=== PATIENT | female | born 1975 | race Caucasian/White ===

== ENCOUNTER 2017-12-13 09:51 | Emergency (ER) | payer BC ==
--- NOTE | 2017-12-13 10:35 | ED ---
Headache - HPI Summary HPI Summary: 42-year-old female with history of renal cell carcinoma, hypertension, polycystic ovarian syndrome, diverticulitis, migraine headaches, presents with gradual onset headaches duration approximate 5 days associated with mild nausea , dizziness, located diffusely and behind her eyes, slightly different from her usual migraines that are mainly generalized and posterior. Denies any fever, recent trauma, or neck pain. No episodes of vomiting. Denies any recent alcohol use. Mild photophobia, no phonophobia. Headache initially started in a similar manner compared to her prior headaches but more severe today. No radiation of the pain. Patient is taking usual medications at home including Tylenol and Maxalt with minimal relief over the last 5 days, worse today. No worsening factors. - History Of Current Complaint Chief Complaint: EDHeadache Stated Complaint: HEADACHE 4-5 DAYS - Allergies/Home Medications Allergies/Adverse Reactions: Allergies Allergy/AdvReac Type Severity Reaction Status Date / Time cefaclor Allergy Mild Hives Verified 12/13/17 11:32 drospirenone [From [facility] (28)] AdvReac Mild Headache Verified 12/13/17 11:32 ethinyl estradiol AdvReac Mild Headache Verified 12/13/17 11:32 [From [facility]LIN (28)] nitrofurantoin AdvReac Mild Headache Verified 12/13/17 11:32 Home Medications: Home Medications Calcium Carbonate [Calcium] 500 mg PO DAILY 12/13/17 [History Confirmed 12/13/17 ] Lisinopril/HCTZ 20/12.5(NF) [Zestoretic 20/12.5(NF)] 1 tab PO DAILY 12/13/17 [ History Confirmed 12/13/17] Metformin ER (NF) [Glucophage ER 750 MG TAB (NF)] 750 mg PO QPM 12/13/17 [ History Confirmed 12/13/17] Multivitamins/Minerals TAB* [Theragran/minerals TAB*] 1 tab PO DAILY 12/13/17 [ History Confirmed 12/13/17] [place]-3 Fatty Acids (Nf) [Fish Oil (NF)] 1,000 mg PO DAILY 12/13/17 [History Confirmed 12/13/17] Spironolactone TAB* [Aldactone TAB*] 50 mg PO DAILY 12/13/17 [History Confirmed 12/13/17] Venlafaxine EXT RELEASE CAP* [Effexor Xr CAP*] 37.5 mg PO DAILY 12/13/17 [ History Confirmed 12/13/17] PMH/Surg Hx/FS Hx/Imm Hx Previously Healthy: Yes Endocrine/Hematology History: Reports: Hx Anemia Denies: Hx Diabetes Cardiovascular History: Reports: Hx Hypertension - RELATED TO POLYCYSTIC OVARIES Denies: Hx Congestive Heart Failure, Hx Pacemaker/ICD Respiratory History: Reports: Hx Asthma - RELATED TO ILLNESS, Hx Seasonal Allergies GI History: Reports: Hx Diverticulosis, Other GI Disorders History: Reports: Hx Renal Disease - r kidney cancer, Other Problems/ Disorders - RIGHT PARTIAL NEPHRECTOMY-2012 Denies: Hx Dialysis Sensory History: Reports: Hx Contacts or Glasses Denies: Hx Hearing Aid Opthamlomology History: Reports: Hx Contacts or Glasses Neurological History: Reports: Hx Headaches, Hx Migraine - STRESS RELATED- TREATS WITH MAXALT Psychiatric History: Reports: Hx Anxiety - NO MEDICATION FOR, Hx Depression - NO MEDICATION FOR, Hx Panic Disorder - Cancer History Cancer Type, Location and Year: RENAL CA 04/2012. PARTIAL RIGHT NEPHRECTOMY Hx Chemotherapy: No Hx Radiation Therapy: No - Surgical History Surgery Procedure, Year, and Place: TONSILECTOMY 1993-[facility]. [facility] D&C 2011-[facility]. PARTIAL RT NEPHRECTOMY 04/2012 -[facility] Anesthesia Reactions: No Infectious Disease History: No Infectious Disease History: Reports: Hx Hepatitis Denies: Traveled Outside the in Last 30 Days - Family History Known Family History: Positive: None - reviewed & noncontributory, Cardiac Disease, Other - dysplipdemia, PCOD - Social History Alcohol Use: Occasionally Hx Substance Use: No Substance Use Type: Reports: None Hx Tobacco Use: No Smoking Status (MU): Never Smoked Tobacco Have You Smoked in the Last Year: No Review of Systems Constitutional: Negative Eyes: Negative Positive: Photophobia ENT: Negative Cardiovascular: Negative Respiratory: Negative Gastrointestinal: Negative Genitourinary: Negative Musculoskeletal: Negative Skin: Negative Negative: Rash Positive: Headache. Negative: Weakness, Paresthesia, Numbness, Slurred Speech Psychological: Normal All Other Systems Reviewed And Are Negative: Yes Physical Exam - Summary Physical Exam Summary: Gen.: In no acute distress, conversational and pleasant HEENT: Extraocular movements intact, pupils equally round and reactive to light Cardiovascular: Normal S1-S2 no murmurs Respiratory: Normal breath sounds bilaterally Abdomen: No tenderness, no masses Neuro: Cranial nerves II through XII intact, normal strength and sensation bilateral upper and lower extremities Musculoskeletal: Normal range of motion all 4 extremities, normal gait seen here in the ED Skin: No rashes, no petechiae Psych: Normal affect : No CVA tenderness Vital Signs On Initial Exam: Initial Vitals Temp Pulse Resp BP Pulse Ox 36.3 C 76 16 131/86 98 12/13/17 09:57 12/13/17 09:57 12/13/17 09:57 12/13/17 09:57 12/13/17 09:57 Diagnostics - Vital Signs Vital Signs Temp Pulse Resp BP Pulse Ox 12/13/17 10:16 81 100 12/13/17 10:14 82 157/94 100 12/13/17 09:57 36.3 C 76 16 131/86 98 - Laboratory Result Diagrams: 12/13/17 10:53 12/13/17 10:53 Lab Statement: Any lab studies that have been ordered have been reviewed, and results considered in the medical decision making process. Re-Evaluation - Re-Evaluation First Eval Change: Improved - Patient feeling better after medications here in the emergency department mild residual headache posteriorly Headache Course/Dx - Course Course Of Treatment: Patient feels better after medications here in the ED, walking normally, I instructed the patient to return immediately for any worsening or concerning symptoms and to make an appointment with a local neurologist for further care and follow-up. Patient and family agree to and understand discharge instructions. - Diagnoses Provider Diagnoses: Headache Discharge - Sign-Out/Discharge Documenting (check all that apply): Discharge/Admit/Transfer - Discharge Plan Condition: Improved Disposition: HOME Prescriptions: Ondansetron ODT TAB* [Zofran 4 MG Odt TAB*] 4 mg PO Q8H PRN #10 tab.odt PRN Reason: Nausea Patient Education Materials: Acute Headache (ED) Forms: *Work Release Referrals: Tamara Nichole MD [Primary Care Provider] - Corby Rider MD [Medical Doctor] - Additional Instructions: PLEASE MAKE AN APPOINTMENT FIRST THING IN THE MORNING TO BE SEEN BY DR. RIDER WITHIN 3-7 DAYS PLEASE RETURN TO THE EMERGENCY ROOM IF YOU HAVE ANY WORSENING OR CONCERNING SYMPTOMS PLEASE MAKE AN APPOINTMENT FIRST THING IN THE MORNING TO BE SEEN BY YOUR PRIMARY CARE DOCTOR WITHIN 1 WEEK - Billing Disposition and Condition Condition: IMPROVED Disposition: HOME
[2017-12-13] MEDS ORDERED: Ketorolac INJ* 30 MG/ML 1 ML VIAL IV ONE (10:45)
[2017-12-13] MEDS ORDERED: diPHENhydraMINE IV* 50 MG/ML 1 ml VIAL (BENADRYL) IV ONE (10:45)
[2017-12-13] MEDS ORDERED: Ondansetron INJ* 2 MG/ML VIAL IV ONE (10:48)
[2017-12-13 11:07] LABS: ABS Basophils 0 10^3/ul (0-0.2); ABS Eosinophils 0.1 10^3/ul (0-0.6); ABS Lymphocytes 2.3 10^3/ul (1.0-4.8); ABS Monocytes 0.3 10^3/ul (0-0.8); ABS Neutrophils 3.9 10^3/ul (1.5-7.7); ABS Nucleated RBC 0 10^3/ul; Eosinophil % 1.4 % (0-6); Hematocrit 39 % (35-47); Hemoglobin 13.4 g/dl (12.0-16.0); Lymphocyte % 34.7 % (25-47); Mean Corpuscular HGB Conc 34 g/dl (31-36); Mean Corpuscular Hemoglobin 32 pg (27-31); Mean Corpuscular Volume 94 fL (80-97); Mean Platelet Volume 7.1 um3 (7.4-10.4); Nucleated Red Blood Cells % 0; Platelet Count 352 10^3/ul (150-450); Red Blood Count 4.13 10^6/ul (4.0-5.4); Red Cell Distribution Width 13 % (10.5-15); White Blood Count 6.7 10^3/ul (3.5-10.8)
--- NOTE | 2017-12-13 11:16 | RAD ---
HISTORY: Persistent headache COMPARISONS: None TECHNIQUE: Multiple contiguous axial CT scans were obtained of the head without intravenous contrast. FINDINGS: HEMORRHAGE/INFARCT: There is no hemorrhage or acute infarct. MASSES/SHIFT: There is no mass or shift. EXTRA-AXIAL SPACES: There are no extra-axial fluid collections. SULCI AND VENTRICLES: The sulci and ventricles are normal in size and position for the patient's stated age. CEREBRUM: There are no focal parenchymal abnormalities. BRAINSTEM: There are no focal parenchymal abnormalities. CEREBELLUM: There are no focal parenchymal abnormalities. VESSELS: The vessels are grossly normal. PARANASAL SINUSES: The paranasal sinuses are clear. ORBITS: The orbits are unremarkable. BONES AND SOFT TISSUE: No bone or soft tissue abnormalities are noted. OTHER: None IMPRESSION: NO ACUTE INTRACRANIAL PATHOLOGY.
[2017-12-13] MEDS ORDERED: Butalb/Acetamin/Caff TAB* 1 TAB PO ONE (11:23)
[2017-12-13 13:52] VITALS: BP 120/72
== END 2017-12-13 13:51 | disposition home or self-care (01) ==
LOC: ED 09:51
DX: R51 Headache (principal); Z85.528 Personal history of other malignant neoplasm of kidney; Z88.8 Allergy status to other drugs, medicaments and biological substances
CPT/HCPCS: 36415; 70450; 80053; 84702; 85025; 96374; 96375; 99283; A9270-GY; J1200; J1885

== ENCOUNTER 2019-10-24 18:49 | Emergency (ER) | payer OTHER ==
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
== END 2019-10-24 20:10 | disposition home or self-care (01) ==
LOC: UCCORT 18:49
DX: S20.211A Contusion of right front wall of thorax, initial encounter (principal); V49.60XA Unspecified car occupant injured in collision with unspecified motor vehicles in traffic accident, initial encounter; Y92.410 Unspecified street and highway as the place of occurrence of the external cause; I10 Essential (primary) hypertension; Z85.528 Personal history of other malignant neoplasm of kidney
CPT/HCPCS: 71046; 99211; G0463

== ENCOUNTER 2019-11-05 07:12 | Day surgery (SDC) | payer OTHER ==
[~2019-11-05 07:12] MED LIST: Buffered Lidocaine 1% SYRIN 1 ml INTRADERM ONE; Famotidine IV 10 MG/ML 2 ml VIAL (20 mg) IV ONE; Lactated Ringers 1000 ml BAG 1,000 ML IV SCH
[2019-11-05] MEDS ORDERED: ceFAZolin 2 GM PREMIX in ORs 2 GM/50 ML BAG ONE (07:39)
[2019-11-05] MEDS ORDERED: Buffered Lidocaine 1% SYRIN 1 ml INTRADERM ONE (07:39)
[2019-11-05] MEDS ORDERED: Famotidine IV 10 MG/ML 2 ml VIAL (20 mg) ONE (07:39)
[2019-11-05] MEDS ORDERED: Lidocaine 1% VIAL 10 MG/ML VIAL ONE (09:35)
[2019-11-05] MEDS ORDERED: Bupivacaine 0.25% SDV 30 ML ONE (09:36)
[2019-11-05] MEDS ORDERED: Dexamethasone IV 4 MG/ML VIAL 1 ml VIAL ONE (09:38)
[2019-11-05] MEDS ORDERED: Ketamine HCL 50 mg/ml 10 ml VIAL (500 MG) ONE (09:38)
[2019-11-05] MEDS ORDERED: fentaNYL 100 mcg/2 ml 50 MCG/ML VIAL ONE (09:38)
[2019-11-05] MEDS ORDERED: Propofol 10 MG/ML 20 ML BTL ONE ×2 (09:38→10:42)
[2019-11-05] MEDS ORDERED: Lidocaine 2% PF 5 ML VIAL ONE (09:38)
[2019-11-05] MEDS ORDERED: Ondansetron 4 mg VIAL 2 MG/ML 2 ml VIAL ONE (09:38)
[2019-11-05] MEDS ORDERED: Midazolam 10 mg/10 ml VIAL 1 mg/ml 10 ml VIAL (10 mg) ONE (09:39)
[2019-11-05 12:00] VITALS: BP 132/80
== END 2019-11-05 12:00 | disposition home or self-care (01) ==
LOC: OR 07:12
PROVIDERS: ATTEND Orthopaedic Surgery
DX: S62.637A Displaced fracture of distal phalanx of left little finger, initial encounter for closed fracture (principal); V49.40XA Driver injured in collision with unspecified motor vehicles in traffic accident, initial encounter; W22.10XA Striking against or struck by unspecified automobile airbag, initial encounter; Y92.410 Unspecified street and highway as the place of occurrence of the external cause; J45.909 Unspecified asthma, uncomplicated; I10 Essential (primary) hypertension; E28.2 Polycystic ovarian syndrome; Z85.528 Personal history of other malignant neoplasm of kidney